=== PATIENT | female | born 1950 | race Caucasian/White ===

== ENCOUNTER 2018-07-22 16:25 | Emergency (ER) | payer OTHER ==
[~2018-07-22] VITALS: Ht 154.9 cm; Wt 60.3 kg
[~2018-07-22 16:25] MED LIST: ACIPHEX20 MG OR; KETOCONAZOLE2 % EX; NEXIUM40 M1 PO; OXYBUTYNIN5 M1 OR
[2018-07-22 17:48] LABS: URINE BILIRUBIN - DIPSTICK NEGATIVE (NEGATIVE); URINE BLOOD DIPSTICK NEGATIVE (NEGATIVE); URINE COLOR YELLOW; URINE GLUCOSE - DIPSTICK NEGATIVE (NEGATIVE); URINE KETONE NEGATIVE (NEGATIVE); URINE LEUK ESTERASE NEGATIVE (NEGATIVE); URINE NITRITE - DIPSTICK NEGATIVE (Negative); URINE PROTEIN - DIPSTICK NEGATIVE (NEG-TRACE); URINE UROBILINOGEN - DIPSTICK 0.2 E.U./dL (0.2)
[2018-07-22 17:51] LABS: HEMATOCRIT 41.8 % (37.0-47.0); HEMOGLOBIN 13.3 g/dl (12.0-16.0); IMMATURE GRANULOCYTES 0.4 % (0.0-5.0); MEAN CORPUSCULAR HGB 30.6 pG CALC (26.0-32.0); MEAN CORPUSCULAR HGB CONC 31.8 g/L CALC (32.0-36.0); NEUT# 4.88 thou/uL (2.00-7.15); RED BLOOD COUNT 4.35 mill/uL (4.20-5.60); RED CELL DISTRI WIDTH 13.2 % (11.5-15.5)
[2018-07-22 17:55] LABS: MEAN CELL VOLUME 96.1 fL CALC (80.0-100.0)
[2018-07-22 18:02] LABS: ALBUMIN 5.1 g/dL (3.2-5.0); ALKALINE PHOSPHATASE 103 u/l (38-126); ANION GAP 18 (6-22 (CALC)); BILIRUBIN, TOTAL 0.7 mg/dL (0.0-1.4); BUN 14 mg/dL (8-23); BUN/CREATININE RATIO 17 (12-20 (CALC)); CARBON DIOXIDE 25 mmol/l (22-30); CHLORIDE 103 mmol/l (95-108); CREATININE 0.8 mg/dL (0.5-1.0); GFR > 60 ML/MIN (>=60 (CALC)); GFR FOR AFR.AMER. > 60 ML/MIN (>=60 (CALC)); POTASSIUM 4.2 mmol/l (3.5-5.1); SGOT/AST 28 u/l (9-36); SODIUM 141 mmol/l (137-146); TOTAL PROTEIN 8.5 g/dL (6.3-8.2)
[2018-07-22] MEDS ORDERED: TAM75CAP PO (19:27)
[2018-07-22] MEDS ORDERED: ROBITUSSIN200 MG/10 PO (19:27)
[2018-07-22] MEDS ORDERED: NAPROSYN500 MG PO (19:28)
[2018-07-22 19:32] VITALS: BP 138/81
== END 2018-07-22 19:40 | disposition home or self-care (01) | DRG 153 ==
LOC: ED 16:25
PROVIDERS: Emergency Medicine
DX: J11.1 Influenza due to unidentified influenza virus with other respiratory manifestations (principal); S30.1XXA Contusion of abdominal wall, initial encounter; W55.12XA Struck by horse, initial encounter
CPT/HCPCS: Q9967